=== PATIENT | male | born 1960 | race Caucasian/White ===

== ENCOUNTER 2022-06-22 13:19 | Outpatient (CLI) | payer BC, SELFPAY | END 2022-06-22 13:20 | disposition home or self-care (01) | PROVIDERS: PCP Internal Medicine; Visit Provider Internal Medicine | DX: Z00.00 Encounter for general adult medical examination without abnormal findings (principal); L50.9 Urticaria, unspecified; Z13.6 Encounter for screening for cardiovascular disorders; Z13.29 Encounter for screening for other suspected endocrine disorder | CPT/HCPCS: 80053; 80061; 84443 ==

== ENCOUNTER 2023-06-17 08:05 | Outpatient (CLI) | payer OTHER, SELFPAY | END 2023-06-17 08:06 | disposition home or self-care (01) | LOC: NFLDREF 07-01 09:03 | PROVIDERS: PCP Internal Medicine; Referring Provider Internal Medicine; Visit Provider Family Medicine | DX: Z13.220 Encounter for screening for lipoid disorders (principal); Z13.1 Encounter for screening for diabetes mellitus; Z12.5 Encounter for screening for malignant neoplasm of prostate | CPT/HCPCS: 80061; 82947; G0103 ==

== ENCOUNTER 2024-06-28 10:03 | Outpatient (CLI) | payer OTHER, SELFPAY ==
--- NOTE | 2024-06-28 10:15 | CRLHL7_ITS ---
For Patients: As a result of the Century Cures Act, medical imaging exams and procedure reports are released immediately into your electronic medical record. You may view this report before your referring provider. If you have questions, please contact your health care provider. EXAM: MRI OF THE LEFT KNEE, WITHOUT CONTRAST CLINICAL INDICATION: Knee pain. PRIOR SURGERY: None reported. COMPARISON PLAIN FILMS: 20 June 2024. COMPARISON CROSS-SECTIONAL IMAGING STUDIES: None available at time of interpretation. TECHNICAL: Axial, sagittal and coronal T1, PD, PD FS and T2 FS images. FINDINGS: OSSEOUS STRUCTURES: No fracture, marrow edema or marrow replacement process. JOINT SPACE AND CAPSULE: Effusion: Small effusion extending just out of the field of view in the suprapatellar recess which is incompletely distended. Mildly prominent medial patellar plica. Joint Bodies: None seen. CRUCIATE LIGAMENTS: Anterior Cruciate Ligament: Normal. Posterior Cruciate Ligament: Normal. EXTENSOR MECHANISM: Distal Quadriceps Tendon: Normal. Patellar Tendon: Normal. Medial Patellar Retinaculum and Medial Patellofemoral Ligament: Normal. Lateral Patellar Retinaculum: Normal. Normal patellar alignment. No patella griffin. Normal trochlear depth. Normal lateral trochlear inclination. MEDIAL COLLATERAL LIGAMENT AND POSTEROMEDIAL CORNER COMPLEX: Medial Collateral Ligament: Low signal thickened suggesting sequela of remote injury. Medial Head of the Gastrocnemius and Semimembranosus Tendons: Normal. LATERAL COLLATERAL LIGAMENT COMPLEX AND POSTEROLATERAL CORNER COMPLEX: Fibular Collateral Ligament: Normal. Distal Biceps Femoris Tendon Complex: Normal. Iliotibial Band: Normal. Popliteus Tendon: Normal. Posterolateral Corner Capsule: Normal. MEDIAL COMPARTMENT: Medial Meniscus: Peripheral horizontal undersurface tear outer posterior horn and posterior body. Underlying marrow edema in the tibial plateau. Articular Cartilage: Articular surfaces appear smooth without focal articular cartilage defect or subchondral marrow changes. LATERAL COMPARTMENT: Lateral Meniscus: Shallow indistinct intermediate signal fraying undersurface and free margin posterior horn. Articular Cartilage: Heterogeneous signal grade 1 to grade 2 chondromalacia central to posterior plateau. PATELLOFEMORAL COMPARTMENT: Articular Cartilage: Heterogeneous signal and grade 1 to grade 2 chondromalacia lateral facet with some patchy subchondral edema and cysts. Trochlear cartilage looks uniform and maintained thickness for age. PERIARTICULAR SOFT TISSUES: Popliteal Cyst: No significant popliteal cyst. Periarticular Cysts or Ganglia: None. Bursae: No prepatellar, superficial infrapatellar, deep infrapatellar, pes anserinus or semimembranosus/MCL bursitis. Musculature: No muscle atrophy or muscle edema. Subcutaneous and Soft Tissues: No subcutaneous or soft tissue mass, edema or fluid collection. Neurovascular Structures: Normal. IMPRESSION: 1. Peripheral undersurface tear body and posterior horn medial meniscus may be posttraumatic. Edema in the marrow of the outer plateau could potentially also be reactive from altered mechanics. 2. 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 3. Small bland joint effusion. Dictated by Reinaldo Manrique MD @ 06/28/2024 3:35:00 PM (Electronically Signed)
== END 2024-06-28 10:04 | disposition home or self-care (01) ==
LOC: MRI 10:05
PROVIDERS: PCP Family Medicine; Visit Provider Family Medicine
DX: M25.562 Pain in left knee (principal); S83.222A Peripheral tear of medial meniscus, current injury, left knee, initial encounter; M22.42 Chondromalacia patellae, left knee; M25.462 Effusion, left knee
CPT/HCPCS: 73721

== ENCOUNTER 2024-07-13 07:51 | Outpatient (CLI) | payer OTHER, SELFPAY | END 2024-07-13 07:52 | disposition home or self-care (01) | LOC: NFLDREF 07-18 06:46 | PROVIDERS: PCP Family Medicine; Referring Provider Family Medicine; Visit Provider Family Medicine | DX: E78.5 Hyperlipidemia, unspecified (principal) | CPT/HCPCS: 80053; 80061 ==